=== PATIENT | male | born 1970 | race Caucasian/White ===

== ENCOUNTER 2017-10-05 21:38 | Emergency (ER) | payer SELFPAY ==
[~2017-10-05] VITALS: Ht 182.9 cm; Wt 106.8 kg
[2017-10-05 21:43] VITALS: BP 134/104; Ht 182.9 cm; Wt 106.8 kg
[2017-10-05] MEDS ORDERED: OXYCONTIN80 MG PO (21:46)
== END 2017-10-05 22:54 | disposition home or self-care (01) ==
LOC: D.ER 21:38
DX: G89.29 Other chronic pain (principal); F17.200 Nicotine dependence, unspecified, uncomplicated